=== PATIENT | female | born 1990 | race Caucasian/White ===

== ENCOUNTER 2017-07-07 21:53 | Emergency (ER) | payer BC, OTHER ==
[2017-07-07 22:01] VITALS: BP 142/85; BMI 32.3
[2017-07-07 22:34] LABS: BILIRUBIN,URINE NEGATIVE (NEGATIVE); BLOOD/HEMOGLOBIN,URINE NEGATIVE (NEGATIVE); GLUCOSE, URINE NEGATIVE (NEGATIVE); KETONES,URINE NEGATIVE (NEGATIVE); LEUKOCYTE ESTERASE ,URINE NEGATIVE (NEGATIVE); NITRITES,URINE NEGATIVE (NEGATIVE); PH,URINE 6.5 (5.0 - 8.0); PROTEIN,URINE NEGATIVE (NEGATIVE); UROBILINOGEN,URINE NORMAL (NORMAL)
[2017-07-07 22:44] LABS: APPEARANCE,URINE CLEAR (CLEAR); COLOR,URINE YELLOW (YELLOW)
--- NOTE | 2017-07-07 23:32 | DR.GENAD ---
HPI - PCP Primary Care Physician: JACLYN - Complaint/Symptoms Chief Complaint:: PT STATES" I'M HURTING ON MY RIGHT SIDE IT COMES AND GOES AND I FEEL PRESSURE " - Source History Provided: Patient - Mode of Arrival Mode of Arrival: Ambulatory - Timing Onset of Chief Complaint: 07/07/17 PMH - PMH Past Medical History: No Past Surgical History: Yes Surgical History: - Family History History of Family Medical Conditions: Yes Family Medical History: Diabetes Mellitus, Hypertension - Social History Does patient currently use any type of tobacco product: No Have you used tobacco products in the last 12 months: No Type of Tobacco Use: None Do you use any recreational Drugs:: No Lives With: Family Lives Where: Home - infectious screening In the last 2 months have you had wt loss of >10#?: NO Have you had fever, night sweats or hemotysis?: No Have you traveled outside the country in the last 6 months?: No Isolation: Standard PE - Vital Signs Vitals: Temperature 98 F Pulse Rate 90 Respiratory Rate 20 Blood Pressure [Right Arm] 132/88 Blood Pressure [Left Arm] 129/89 Blood Pressure 142/85 O2 Sat by Pulse Oximetry 100 ROR - Labs Reviewed Laboratory: Specimen Type Clean catch urine 07/07/17 22:12 Urine Color Yellow (YELLOW) 07/07/17 22:12 Urine Appearance Clear (CLEAR) 07/07/17 22:12 Urine pH 6.5 (5.0 - 8.0) 07/07/17 22:12 Ur Specific [place] 1.010 (1.000-1.030) 07/07/17 22:12 Urine Protein Negative (NEGATIVE) 07/07/17 22:12 Urine Glucose (UA) Negative (NEGATIVE) 07/07/17 22:12 Urine Ketones Negative (NEGATIVE) 07/07/17 22:12 Urine Occult Blood Negative (NEGATIVE) 07/07/17 22:12 Urine Nitrite Negative (NEGATIVE) 07/07/17 22:12 Urine Bilirubin Negative (NEGATIVE) 07/07/17 22:12 Urine Urobilinogen Normal (NORMAL) 07/07/17 22:12 Ur Leukocyte Esterase Negative (NEGATIVE) 07/07/17 22:12 - Discharge Plan Condition: Stable - Follow ups/Referrals Follow ups/Referrals: TYRON ANAYA [Primary Care Provider] - 3 days - Instructions Instructions: Third Trimester of , Jrgi-[id number], Abdominal Pain During , [id number] Additional Instructions: INCREASE YOUR FLUID INTAKE KEEP APPOINTMENT WITH DR. ANAYA
== END 2017-07-07 23:20 | disposition home or self-care (01) ==
LOC: ER 22:07
DX: R10.84 Generalized abdominal pain (principal); Z3A.00 Weeks of gestation of pregnancy not specified
CPT/HCPCS: 81003; 99284